=== PATIENT | male | born 1985 | race Caucasian/White ===

== ENCOUNTER 2019-09-17 13:03 | Inpatient (IN) ==
[2019-09-17 13:47] LABS: BASO# 0.17 X1000 (0.0-0.2); BASO% 2.3 % (0.0-0.8); EOS# 0.32 X1000 (0.0-0.7); EOS% 4.3 % (0.0-10.0); HEMATOCRIT 44.3 % (42.0-52.0); HEMOGLOBIN 14.4 g/dL (14.0-18.0); LYMPH# 2.28 X1000 (1.2-3.4); LYMPH% 30.8 % (20.5-51.1); MCH 26.8 PG (27-31); MCHC 32.5 g/dL (33-37); MCV 82.3 FL (81-99); MONO# 0.65 X1000 (0.11-0.59); MONO% 8.8 % (1.7-9.3); MPV 10.2 FL (7.4-10.4); NEUT# 3.98 X1000 (1.4-6.5); NEUT% 53.8 % (42.2-75.2); PLT 291 X1000 (130-400); RBC 5.38 XMIL (4.7-6.1)
--- NOTE | 2019-09-17 13:49 | Diag Imaging Result Doc PS360 ---
EXAM: CHEST-PORTABLE HISTORY: overdose TECHNIQUE: Single view COMPARISON: 09/09/2019 FINDINGS: The lungs are well expanded. The heart is not enlarged. The vessels are not distended. There are no infiltrates. No effusion identified. IMPRESSION: Negative exam. Electronically signed by Robert Berumen 09/17/2019 1:46 PM
[2019-09-17 13:52] LABS: URINE SOURCE CLEAN CATCH
[2019-09-17 13:54] LABS: BILIRUBIN URINE NEGATIVE (NEGATIVE); BLOOD URINE NEGATIVE (NEGATIVE); COLOR YELLOW; GLUCOSE URINE NEGATIVE (NEGATIVE); KETONE URINE NEGATIVE (NEGATIVE); LEUKOCYTES URINE NEGATIVE (NEGATIVE); NITRITE URINE NEGATIVE (NEGATIVE); PROTEIN URINE TRACE mg/dL (NEGATIVE); SP GRAVITY URINE 1.024; TURBIDITY URINE CLEAR (CLEAR); UROBILINOGEN URINE 2 mg/dL (NORMAL)
[2019-09-17 13:56] LABS: UR EPITHELIAL CELLS <10 /HPF (<10); URINE BACTERIA NEGATIVE /HPF; URINE RBC <10 /HPF (<10); URINE WBC <10 /HPF (<10)
[2019-09-17 14:03] LABS: URINE CRYSTALS NONE SEEN
[2019-09-17 14:07] LABS: UR AMPHETAMINES QUAL PRESUMPTIVE POSITIVE (NONE DETECT); UR BARBITUATES QUAL NONE DETECTED (NONE DETECT); UR BENZODIAZEPIN QUAL NONE DETECTED (NONE DETECT); UR CANNABINOIDS QUAL NONE DETECTED (NONE DETECT); UR COCAINE QUAL NONE DETECTED (NONE DETECT); UR METHADONE QUAL NONE DETECTED (NONE DETECT); UR OPIATES QUAL NONE DETECTED (NONE DETECT); UR OXYCODONE QUAL NONE DETECTED (NONE DETECT); UR PCP QUAL NONE DETECTED (NONE DETECT)
--- NOTE | 2019-09-17 14:09 | EKG Report ---
Test Performed on : 09/17/2019 1:22:39 PM Test Reason : overdose Blood Pressure : / mmHG Vent. Rate : 054 BPM Atrial Rate : 054 BPM P-R Int : 162 ms QRS Dur : 098 ms QT Int : 388 ms P-R-T Axes : 024 062 042 degrees QTc Int : 367 ms Sinus bradycardia. Otherwise normal ECG When compared with ECG of 08-SEP-2019 17:57, (Unconfirmed) No significant change was found Unconfirmed Result
[2019-09-17 14:31] LABS: ACETAMINOPHEN < 1.2 ug/mL (10-30); AGAP 12; ALB/GLOB RATIO 1.9; ALBUMIN 4.3 g/dL (3.5-5.0); ALKALINE PHOSPHATASE 90 U/L (32-122); BUN 8 mg/dL (8-22); CHLORIDE 97 mmol/L (98-107); COSMO 269; ESTIMATED GFR > 60; GLUCOSE 100 mg/dL (70-104); GOT 15 U/L (10-34); GPT 16 U/L (10-44); POTASSIUM 4.3 mmol/L (3.5-5.1); SALICYLATES < 3.00 mg/dL (3-10); SODIUM 135 mmol/L (136-145); TCO2 26 mmol/L (25-35); TOTAL BILIRUBIN 0.98 mg/dL (0.20-1.00); TOTAL PROTEIN 6.6 g/dL (6.3-8.3)
[2019-09-17 14:49] LABS: FREE T4 1.76 ng/dL (0.93-1.70); TSH 0.73 uIUmL (0.27-4.20)
--- NOTE | 2019-09-17 15:29 | PROVIDER DOCUMENTATION ---
This chart was entered by Doris Hackett Scribe, acting as scribe for Ubaldo Montes MD. 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 Pt told EMS he took 29 - 30mg Prozac. EMS said pt was alert and talking when they arrived. Pt is alert and nontoxic in appearance on arrival in ED. This episode of drinking or use began:: 1-3 hours ago Severity: reports: mild Situational problems related to:: reports: N/A Psychiatric Complaints: reports: suicidal ideation Any injuries associated with this episode of intoxication?: No Similar Symptoms Previously?: Yes (Pt seen in ED 09/08/2019 and transferred to [facility] on 09/10/2019) - Substance Abuse Substance Use: reports: none presently/history of abuse (Pt was seen in ED 09/08/2019 for overdose) Review of Systems - Adult - REVIEW OF SYSTEMS - ADULT Constitutional: denies: chills, fever Eyes: reports: no symptoms reported Ears, Nose, Mouth & Throat: reports: no symptoms reported Cardiovascular: denies: chest pain, syncope Respiratory: denies: cough, shortness of breath Gastrointestinal: reports: no symptoms reported Genitourinary: reports: no symptoms reported Musculoskeletal: reports: no symptoms reported Integumentary: reports: no symptoms reported Neurological: reports: no symptoms reported Psychiatric: reports: see HPI, suicidal thoughts (overdose of 29 pills of 30 mg Prozac this am) Endocrine: reports: no symptoms reported Hematologic/Lymphatic: reports: no symptoms reported Allergic/Immunologic: reports: no symptoms reported All Other Systems: Reviewed and Negative Past History - Adult - PAST MEDICAL HISTORY-ADULT Review of Records: reports: Old Records Reviewed, Nursing Assessment Review, Medications Reviewed, Social history reviewed & non-contributory. Major Childhood Illnesses: reports: denies history Cardiovascular: reports: denies history Respiratory: reports: denies history Gastrointestinal: reports: denies history Genitourinary: reports: denies history Musculoskeletal: reports: denies history Neurological: reports: denies history Psychiatric: reports: bipolar Endocrine/Immune: reports: denies history Other Conditions: reports: denies history - PRIOR SURGERIES/PROCEDURES Surgical/Procedure History: reports: none - IMMUNIZATION STATUS Childhood Immunizations: See Nurse Assessment Flu Vaccine: See Nurse Assessment - FAMILY HISTORY Family History: reviewed, not pertinent - SOCIAL HISTORY Smoking: chew (1 can per day) Living Situation: family (grandmother) Physical Exam-General - PHYSICAL EXAM-ADULT Initial Vital Signs Reviewed: Yes (HR 53) - CONSTITUTIONAL General Appearance: appears well, alert, no apparent distress, lethargic (answers appropriately) - EYES Eyes: PERRL/EOMI, pink conjunctivae - HEAD, EARS, NOSE, MOUTH & THROAT HENMT: normocephalic/atraumatic, moist mucous membranes - NECK Neck: non-tender, full range of motion, supple - RESPIRATORY Respiratory: chest non-tender, lungs clear, normal breath sounds, no pleuratic chest pain, no respiratory distress, no accessory muscle use - CARDIOVASCULAR Cardiovascular: normal peripheral pulses, no edema, no gallop, no JVD, no murmur , bradycardia - GASTROINTESTINAL (ABDOMEN) Abdominal Exam: non tender, soft - LYMPHATIC Lymphatic: no adenopathy - MUSCULOSKELETAL Back Exam: normal inspection, no CVA tenderness, no vertebral tenderness Extremity: normal range of motion, non-tender, normal gait, normal inspection, no pedal edema, no calf tenderness, normal capillary refill - SKIN Integumentary: normal color, normal turgor, warm/dry - NEUROLOGIC Neurologic: grossly normal - PSYCHIATRIC Psych/Mental Status: normal mood/affect, normal thought content, normal thought process, oriented x 3 Progress - PLAN OF CARE/RESULTS Progress/Plan/Lab Results: Vital Signs - 8 hr 09/17/19 13:21 Temperature 98.6 F Pulse Rate 53 L Respiratory Rate 18 Blood Pressure 112/77 O2 Sat by Pulse Oximetry 100 Laboratory Results - last 24 hr 09/17/19 09/17/19 09/17/19 13:33 13:35 13:35 WBC 7.40 RBC 5.38 Hgb 14.4 Hct 44.3 MCV 82.3 MCH 26.8 L MCHC 32.5 L RDW Std Deviation 14.0 Plt Count 291 MPV 10.2 Immature Gran % (Auto) 0.0 Neut % (Auto) 53.8 Lymph % (Auto) 30.8 [place] % (Auto) 8.8 Eos % (Auto) 4.3 Baso % (Auto) 2.3 H Immature Gran # (Auto) 0.00 Neut # (Auto) 3.98 Lymph # (Auto) 2.28 [place] # (Auto) 0.65 H Eos # (Auto) 0.32 Baso # (Auto) 0.17 Sodium 135 L Potassium 4.3 Chloride 97 L Carbon Dioxide 26 Anion Gap 12 BUN 8 Creatinine 1.0 Estimated GFR/1.73 m2 > 60 BUN/Creatinine Ratio 8 Glucose 100 Calculated Osmolality 269 Calcium 9.0 Magnesium Total Bilirubin 0.98 AST 15 ALT 16 Alkaline Phosphatase 90 Total Protein 6.6 Albumin 4.3 Globulin 2.3 Albumin/Globulin Ratio 1.9 Vitamin B12 286 TSH 0.73 Free T4 1.76 H Urine Source Urine Color Urine Turbidity Urine pH Ur Specific [place] Urine Protein Ur Glucose (Stick) Ur Ketones (Stick) Urine Blood Urine Nitrite Urine Bilirubin Urobilinogen Dipstick Urine Leukocytes Urine WBC (Auto) Urine RBC (Auto) U Epithel Cells (Auto) Urine Bacteria (Auto) Urine Crystals Small Round Cells Urine Casts Urine Yeast-like Cells Salicylates < 3.00 L Urine Opiates Screen Ur Oxycodone Screen Ur Methadone, Qual Acetaminophen < 1.2 L Ur Barbiturates Screen Ur Phencyclidine Scrn Ur Amphetamines Screen U Benzodiazepines Scrn Urine Cocaine Screen U Cannabinoids Screen Plasma/Serum Ethyl Alc 09/17/19 09/17/19 09/17/19 13:35 13:35 13:47 WBC RBC Hgb Hct MCV MCH MCHC RDW Std Deviation Plt Count MPV Immature Gran % (Auto) Neut % (Auto) Lymph % (Auto) [place] % (Auto) Eos % (Auto) Baso % (Auto) Immature Gran # (Auto) Neut # (Auto) Lymph # (Auto) [place] # (Auto) Eos # (Auto) Baso # (Auto) Sodium Potassium Chloride Carbon Dioxide Anion Gap BUN Creatinine Estimated GFR/1.73 m2 BUN/Creatinine Ratio Glucose Calculated Osmolality Calcium Magnesium 2.0 Total Bilirubin AST ALT Alkaline Phosphatase Total Protein Albumin Globulin Albumin/Globulin Ratio Vitamin B12 TSH Free T4 Urine Source Urine Color Urine Turbidity Urine pH Ur Specific [place] Urine Protein Ur Glucose (Stick) Ur Ketones (Stick) Urine Blood Urine Nitrite Urine Bilirubin Urobilinogen Dipstick Urine Leukocytes Urine WBC (Auto) Urine RBC (Auto) U Epithel Cells (Auto) Urine Bacteria (Auto) Urine Crystals Small Round Cells Urine Casts Urine Yeast-like Cells Salicylates Urine Opiates Screen NONE DETECTED Ur Oxycodone Screen NONE DETECTED Ur Methadone, Qual NONE DETECTED Acetaminophen Ur Barbiturates Screen NONE DETECTED Ur Phencyclidine Scrn NONE DETECTED Ur Amphetamines Screen PRESUMPTIVE POSITIVE A U Benzodiazepines Scrn NONE DETECTED Urine Cocaine Screen NONE DETECTED U Cannabinoids Screen NONE DETECTED Plasma/Serum Ethyl Alc 09/17/19 13:47 WBC RBC Hgb Hct MCV MCH MCHC RDW Std Deviation Plt Count MPV Immature Gran % (Auto) Neut % (Auto) Lymph % (Auto) [place] % (Auto) Eos % (Auto) Baso % (Auto) Immature Gran # (Auto) Neut # (Auto) Lymph # (Auto) [place] # (Auto) Eos # (Auto) Baso # (Auto) Sodium Potassium Chloride Carbon Dioxide Anion Gap BUN Creatinine Estimated GFR/1.73 m2 BUN/Creatinine Ratio Glucose Calculated Osmolality Calcium Magnesium Total Bilirubin AST ALT Alkaline Phosphatase Total Protein Albumin Globulin Albumin/Globulin Ratio Vitamin B12 TSH Free T4 Urine Source CLEAN CATCH Urine Color YELLOW Urine Turbidity CLEAR Urine pH 6.0 Ur Specific [place] 1.024 Urine Protein TRACE A Ur Glucose (Stick) NEGATIVE Ur Ketones (Stick) NEGATIVE Urine Blood NEGATIVE Urine Nitrite NEGATIVE Urine Bilirubin NEGATIVE Urobilinogen Dipstick 2 A Urine Leukocytes NEGATIVE Urine WBC (Auto) <10 Urine RBC (Auto) <10 U Epithel Cells (Auto) <10 Urine Bacteria (Auto) NEGATIVE Urine Crystals NONE SEEN Small Round Cells Not Reportable Urine Casts Not Reportable Urine Yeast-like Cells Not Reportable Salicylates Urine Opiates Screen Ur Oxycodone Screen Ur Methadone, Qual Acetaminophen Ur Barbiturates Screen Ur Phencyclidine Scrn Ur Amphetamines Screen U Benzodiazepines Scrn Urine Cocaine Screen U Cannabinoids Screen Plasma/Serum Ethyl Alc Orders Category Date Time Status Cardiac Monitoring DIRECTED Care 09/17/19 13:07 Active Nursing- Obtain EKG once Care 09/17/19 13:06 Active Saline Loc NOW Care 09/17/19 13:06 Active CHEST-PORTABLE [RAD] Stat Exams 09/17/19 13:06 Completed ACETAMINOPHEN [TDM] Stat Lab 09/17/19 13:35 Completed ALCOHOL BLOOD Stat Lab 09/17/19 13:35 Completed CBC WITH ELECTRONIC DIFF [HEME] Stat Lab 09/17/19 13:33 Completed COMPREHENSIVE METABOLIC PANEL [CHEM] Stat Lab 09/17/19 13:35 Completed FREE T4 Stat Lab 09/17/19 13:35 Completed MAGNESIUM [CHEM] Stat Lab 09/17/19 13:35 Completed SALICYLATES [TDM] Stat Lab 09/17/19 13:35 Completed TSH Stat Lab 09/17/19 13:35 Completed URINALYSIS W/POSS RFLX CULT [URINALYSIS] Stat Lab 09/17/19 13:47 Completed URINE DRUG SCREEN Stat Lab 09/17/19 13:47 Completed URINE MANUAL MICROSCOPIC [URINALYSIS] Stat Lab 09/17/19 13:47 Completed VITAMIN B12 Stat Lab 09/17/19 13:35 Completed EKG [EKG] Stat Ther 09/17/19 13:06 Draft EKG [EKG] Stat Ther 09/17/19 17:30 Ordered Result Diagrams: 09/17/19 13:33 09/17/19 13:35 - REASSESSMENT Reassessment #1 Time Reassessed: 15:27 Status: unchanged (Patient lethargic but rousable, HR drifts down to 40s when resting, but BP is normotensive. Will not likely be medically clear for at least 24 hours, so will ask hospitalist to admit) - EKG 1 Time of EKG reading by physician:: 13:30 EKG Read and Signed by:: Ubaldo Montes EKG Interpretation (*Must complete 3 of following elements*): Normal Rate: 54 Rhythm: Sinus bradycardia QRS: normal GA Interval: normal Comments: NonSTEMI, early repol - XRAY 1 XRAY Study: Chest Impression: See EMR Report ([facility] - [address], [address], [place] [address] [facility] - [address] [facility] [place] [address] Department of Imaging Patient: KARUNA GRIFFIN Date: 09/17/19#: [id number] : 1985ADM Status: PRE ERAcct#: [id number] Age/Sex: 34/MRoom/Bed: Loc: ED Ordering Physician: Ubaldo Montes MD Family Physician: Reason for Procedure: overdose Signed EXAM: CHEST- PORTABLE HISTORY: overdose TECHNIQUE: Single view COMPARISON: 09/09/2019 FINDINGS: The lungs are well expanded. The heart is not enlarged. The vessels are not distended. There are no infiltrates. No effusion identified. IMPRESSION: Negative exam. Electronically signed by Robert Berumen 09/17/2019 1:46 PM 09/17/19 1346 Interpreting Physician: Robert Berumen MD Dictated Date/Time: 09/17/19 1346 cc: Ubaldo Montes MD;) - CONSULTS/PCP/HOSPITALIST Notification #1 *Consult/PCP/Hospitalist*: MICKY Alfredo, hospitlaist Time Discussed: 15:28 Consult Disposition: Will see in ED, Admit Departure - Departure Date of Disposition Decision: 09/17/19 Time of Disposition Decision: 15:28 DIAGNOSIS: Suicide attempt by drug overdose, Sinus bradycardia, Somnolence Disposition: ADMITTED INPATIENT 09 Certified Medical Emergency: Emergent Condition: Stable - Critical Care Note This patient required my direct & personal management of CC.: No Attestation - Physician/ CHEMA Attestation Patient care was provided by Advanced Practice Provider:: No The physician spent face to face time with patient:: Yes Advanced Practice Provider documentation review:: Supervising physician onsite and consulted in the evaluation and care of this patient. The physician did have a face to face encounter with the patient. This chart was documented by the indicated scribe, (Doris Hackett Scribe) and accurately reflects the services I performed and decisions made by me, Ubaldo Montes MD, as attested by the provider's signature.
[2019-09-17] MEDS ORDERED: NS 1,000 ML IV SCH (16:00)
--- NOTE | 2019-09-17 17:12 | HISTORY AND PHYSICAL ---
PRIMARY CARE PROVIDER: No one. CHIEF COMPLAINT: Overdosed on Prozac. HISTORY OF PRESENT ILLNESS: Mr. Alistair Paredes is a 34-year-old male who reports a medical history of bipolar disorder, was most recently in the hospital in I believe it was [facility] was discharged recently on Prozac. He states he took the whole bottle of Prozac 30 pills total just before lunch today with reported attempt of suicide. He does wish kill himself and so Poison Control was contacted and the recommendation is to continue to monitor and get EKGs to make sure the QTc does not prolong out. We will admit him to the ICU to evaluate and treat. Currently he is having some bradycardic rhythms and so he will be on telemetry in the ICU. PAST MEDICAL HISTORY: Bipolar disorder. SURGICAL HISTORY: None. SOCIAL HISTORY: He dips a can of dip on a daily basis. Denies alcohol or illicit drug use, lives with grandmother. He has been disabled due to mental disorders. FAMILY HISTORY: Mother had a stroke and at 44. Father has diabetes. ALLERGIES: Ritalin causes a rash. home medications Unknown. REVIEW OF SYSTEMS: Fourteen point review of systems are complete and all were negative except for those mentioned above HPI. PHYSICAL EXAMINATION: VITAL SIGNS: Temperature 98.6 degrees, heart rate 53, respiratory rate 18, blood pressure 112/77, O2 saturation 100% on room air. GENERAL: Mr. Alistair Paredes is a 34-year-old male he is in no acute distress. He is drowsy but he is able to wake up and answer questions appropriately. HEENT: Atraumatic, normocephalic. Pupils equal, round, reactive to light. Extraocular movements intact. Mucous membranes are moist. NECK: Trachea midline. CARDIOVASCULAR: S1, S2. Bradycardic rate and rhythm. No rubs, gallops, murmurs. No lower extremity edema. +2 dorsalis and radial pulses. Negative JVD or carotid bruits. PULMONARY: Clear to auscultate bilateral breath sounds. No accessory muscle use or work of breathing noted. GI: Soft, nontender, nondistended. Positive bowel sounds x4. EXTREMITIES: Moves all extremities equally. Full range of motion. NEURO: A and O x3. Follows commands. Sensory is intact. He is a little drowsy. SKIN: Warm, dry, intact. LABORATORY DATA: White blood cells 7000, hemoglobin 14, hematocrit 44, platelet count 291,000. Sodium 135, potassium 4.3, BUN 8, creatinine is 1.0, glucose 100, calcium 9.0, magnesium 2.0, bilirubin 0.98, AST 15, ALT 16, vitamin B12 286, TSH 0.73, free T4 is 1.76. Urinalysis trace protein, 2 urobilinogen otherwise negative. Salicylates less than 3, acetaminophen less than 1.2. He is positive amphetamines, negative alcohol. IMAGING: Chest x-ray negative exam. EKG rate 54, QTc is 367 and he is sinus bradycardia. ASSESSMENT AND PLAN: 1. Prozac overdose with intentional attempt for suicide. He will have to be watched in the ICU closely and will monitor his QTc for prolongation. We will hold any medications that can prolong the QTc and he will need a [facility] consult once medically cleared. 2. History of bipolar disorder, was recently being treated at [facility] in [place]. 3. Amphetamine positive. He denies illicit drug use. It could be a prescribed medication he is receiving but he is unclear. 4. Deep venous prophylaxis SCDs. 5. Tobacco abuse is smokeless tobacco. He dips 1 can of dip per day. May have to add a nicotine patch if needed. Dictated by MICKY Ames for Marek Nolen MD cc: MICKY Ames MD
[2019-09-17] MEDS ORDERED: MELATONIN PO ONE (20:36)
[2019-09-17] MEDS ORDERED: NS 1,000 ML IV ONE (21:13)
[2019-09-17] MEDS ORDERED: ZOFRAN IV PRN (21:13)
--- NOTE | 2019-09-17 21:33 | PROGRESS NOTE ---
DATE: 09/17/2019 SUBJECTIVE: The patient has a history of depression, possibly bipolar. In any case he came in with an intentional overdose of Prozac. He took 30 tablets of Prozac at 40 mg. ASSESSMENT/PLAN: The patient will be admitted, placed on observation, and monitored. He reportedly has amphetamines in his system too, which is certainly possible. In any case, we will continue fluids and monitoring psychiatric evaluation once stable. cc: Marek Nolen MD
[2019-09-18 04:31] LABS: BASO# 0.04 X1000 (0.0-0.2); BASO% 0.7 % (0.0-0.8); EOS# 0.24 X1000 (0.0-0.7); EOS% 3.9 % (0.0-10.0); HEMATOCRIT 40.8 % (42.0-52.0); HEMOGLOBIN 13.2 g/dL (14.0-18.0); LYMPH# 2.63 X1000 (1.2-3.4); MCHC 32.4 g/dL (33-37); MCV 83.6 FL (81-99); MONO# 0.53 X1000 (0.11-0.59); MONO% 8.7 % (1.7-9.3); MPV 10.3 FL (7.4-10.4); NEUT# 2.67 X1000 (1.4-6.5); NEUT% 43.7 % (42.2-75.2); PLT 246 X1000 (130-400); RBC 4.88 XMIL (4.7-6.1); WBC 6.11 X1000 (4.8-10.8)
[2019-09-18 05:08] LABS: AGAP 10; ALB/GLOB RATIO 1.3; ALBUMIN 3.5 g/dL (3.5-5.0); ALKALINE PHOSPHATASE 79 U/L (32-122); BUN 8 mg/dL (8-22); CALCIUM 8.3 mg/dL (8.8-10.2); CHLORIDE 99 mmol/L (98-107); COSMO 271; CREATININE 0.9 mg/dL (0.7-1.2); ESTIMATED GFR > 60; GLUCOSE 115 mg/dL (70-104); GOT 12 U/L (10-34); GPT 13 U/L (10-44); MAGNESIUM 1.9 mg/dL (1.5-2.7); SODIUM 136 mmol/L (136-145); TCO2 27 mmol/L (25-35); TOTAL BILIRUBIN 1.06 mg/dL (0.20-1.00); TOTAL PROTEIN 6.1 g/dL (6.3-8.3)
--- NOTE | 2019-09-18 07:01 | EKG Report ---
Test Performed on : 09/18/2019 06:36:36 AM Test Reason : qtc evaluation after prozac overdose Blood Pressure : / mmHG Vent. Rate : 042 BPM Atrial Rate : 042 BPM P-R Int : 156 ms QRS Dur : 090 ms QT Int : 424 ms P-R-T Axes : 069 051 037 degrees QTc Int : 354 ms Critical Test Result: Low HR Marked sinus bradycardia. Abnormal ECG When compared with ECG of 17-SEP-2019 13:22, (Unconfirmed) No significant change was found Confirmed by Lisette HURD, Samuel Segal ([id number]) on 09/18/2019 9:58:10 AM
[2019-09-18] MEDS ORDERED: DOPAMINE 400 MG/D5W 400 MG/500 ML IV.SOLN IV SCH (07:45)
--- NOTE | 2019-09-18 08:09 | EKG Report ---
Test Performed on : 09/18/2019 04:01:42 AM Test Reason : ICU. NO EKG ORDER FOR MUSE Blood Pressure : / mmHG Vent. Rate : 041 BPM Atrial Rate : 041 BPM P-R Int : 154 ms QRS Dur : 098 ms QT Int : 442 ms P-R-T Axes : 008 071 043 degrees QTc Int : 364 ms Marked sinus bradycardia. Abnormal ECG No previous ECGs available Confirmed by Lisette HURD, Samuel Segal ([id number]) on 09/18/2019 9:58:00 AM
--- NOTE | 2019-09-18 10:52 | CARDIOLOGY CONSULTATION ---
DATE: 09/18/2019 CHIEF COMPLAINT ON PRESENTATION: Suicide attempt with Prozac overdose. HISTORY OF PRESENT ILLNESS: Mr. Paredes is a 34-year-old, white male with a history of depression, recent admissions to inpatient psych. Reportedly took approximately 30 pills of Prozac around noon yesterday. The patient does report some occasional dizziness since admission. He has had some identified heart rates showing sinus bradycardia in the 30s and 40s. This seems to occur when he is lying in bed and calm. When the patient sits up and is conversant, he has had heart rates in the 60s to 70s during my examination. He denies any overt syncope. He has some mild abdominal pain, but otherwise no complaints. PAST MEDICAL HISTORY: Significant for bipolar. SOCIAL HISTORY: Smokeless tobacco use. No alcohol or illicit drugs. FAMILY HISTORY: Mother had a stroke apparently at 44 and . Father had diabetes. REVIEW OF SYSTEMS: A 10-system review of systems is negative, except for those mentioned in the HPI. PHYSICAL EXAMINATION: Vital Signs: Afebrile. Heart rate most recently was in the 60s to 70s. He has had some documented heart rates in the high 30s to low 40s. Blood pressure 118/75. General: No acute distress. HEENT: Oropharynx is moist. Normal dentition. Eye examination shows pink conjunctivae, white sclerae. Neck: No obvious thyromegaly or thyroid tenderness. Cardiovascular: He is in a regular rate and rhythm. He has no murmurs. He has no S3. He has no lower extremity edema. He has no carotid bruits. Chest: Sounds relatively clear to auscultation bilaterally with no increased work of breathing. Abdomen: Soft, nontender, nondistended. He has no obvious organomegaly. Skin: Warm and dry throughout without any rashes. Neurological: He is moving all extremities well. He has no lateralizing deficits. PERTINENT DATA: His chest x-ray is unremarkable. EKG on 09/17/2019 at 1322 shows sinus rhythm, 54 beats per minute, normal QTc, normal ND interval. Subsequent EKG tracing reviewed by me on 09/18/2019 at 4:01 shows sinus rhythm, rate of 41 beats per minute, normal QTc at 364, ND interval 154. Subsequent EKG on 09/18/2019 at 6:36 this morning, again reviewed by me, shows sinus rhythm at 42 beats per minute, QTc of 354, normal ND interval. LABORATORY DATA: White count is 6.1, hematocrit 40, platelet count of 246,000. Sodium 136, potassium 4, BUN 8, creatinine 0.9. TSH 0.73, with a free T4 of 1.76. He had a positive screen for amphetamines. Serum alcohol negative. ASSESSMENT: Mr. Paredes is a 34-year-old gentleman with suicide attempt via ingestion of Prozac. PLAN: At this point, he appears to be in sinus rhythm with appropriate rates. He has not required any sort of support for his heart rate. His TSH is normal. At this point, we will order an echo. If this is unremarkable, I do not have any further recommendations. cc: Anival Chavez MD MTDD
--- NOTE | 2019-09-18 14:31 | PROGRESS NOTE ---
DATE: 09/18/2019 SUBJECTIVE: The patient has no major complaints. OBJECTIVE: Vital Signs: Blood pressure is 107/71, heart rate is in the 40s to 50s but is a sinus bradycardia. Temperature 97.8 degrees. Cardiovascular: Regular rate and rhythm. Pulmonary: Bilateral breath sounds clear to auscultation. GI: Soft, nontender, nondistended. Bowel sounds are positive. LABORATORY DATA: White count 6, hemoglobin and hematocrit 13 and 40, platelets 246,000. PROBLEM LIST: 1. Fluoxetine overdose. We will continue to monitor. So far no clear pathology, however, he has developed fairly significant bradycardia, which is probably due to drug effect. 2. Sinus bradycardia. I do not think he ever ended up starting dopamine. We did get a cardiology consult. Echo pending. Will follow. DISPOSITION: Will need psychiatric evaluation once he is stabilized, however, probably going to have to monitor him today because of concurrent issues. cc: Marek Nolen MD
--- NOTE | 2019-09-18 16:00 | ECHO REPORT ---
ORDER DATE: 09/18/2019 INTERPRETING PHYSICIAN: Gunner Mercado MD. CLINICAL INDICATIONS: Bradycardia. M-MODE MEASUREMENTS: Left ventricle end diastole: 4.7 cm. Left ventricle end systole: 2.9 cm. Posterior wall: 0.8 cm. Interventricular septum: 0.9 cm. Left atrium: 3.6 cm. Aortic diameter: 3.2 cm. SUMMARY OF 2-DIMENSIONAL IMAGIN. Left ventricular function is normal, ejection fraction of 69%. There is no wall motion abnormality noted. 2. The right ventricle appears to be normal. 3. The atria appear to be normal. 4. The mitral valve looks normal. Color flow mapping unremarkable. 5. Pulse wave Doppler of mitral inflow is normal. 6. Tissue Doppler of septal and lateral mitral annulus averages 9 cm. 7. The aortic valve looks normal. Color flow mapping unremarkable. 8. The inferior vena cava is not dilated. 9. The tricuspid valve looks normal. Color flow mapping unremarkable. 10.Pulmonary pressure is normal. 11.Pulmonic valve is normal. Color flow mapping unremarkable. 12.There is no pericardial effusion, no mass, and no thrombus. SUMMARY: This echocardiographic study appears to be within normal limits. cc: MD Anival Petty MD
[2019-09-18] MEDS: TYLENOL PO PRN ×2 (16:09→21:11)
[2019-09-19 04:37] LABS: EOS# 0.35 X1000 (0.0-0.7); EOS% 5.4 % (0.0-10.0); HEMATOCRIT 41.8 % (42.0-52.0); HEMOGLOBIN 13.7 g/dL (14.0-18.0); LYMPH# 2.97 X1000 (1.2-3.4); MCH 27.2 PG (27-31); MCHC 32.8 g/dL (33-37); MCV 83.1 FL (81-99); MONO# 0.58 X1000 (0.11-0.59); MPV 10.4 FL (7.4-10.4); PLT 236 X1000 (130-400); RBC 5.03 XMIL (4.7-6.1); RDW 13.8 % (11.5-14.5); WBC 6.45 X1000 (4.8-10.8)
[2019-09-19 04:52] LABS: AGAP 9; ALB/GLOB RATIO 1.6; ALBUMIN 3.7 g/dL (3.5-5.0); ALKALINE PHOSPHATASE 77 U/L (32-122); BUN 9 mg/dL (8-22); CHLORIDE 101 mmol/L (98-107); COSMO 272; CREATININE 0.8 mg/dL (0.7-1.2); ESTIMATED GFR > 60; GLUCOSE 97 mg/dL (70-104); GOT 10 U/L (10-34); GPT 12 U/L (10-44); MAGNESIUM 1.7 mg/dL (1.5-2.7); POTASSIUM 4.1 mmol/L (3.5-5.1); SODIUM 137 mmol/L (136-145); TCO2 27 mmol/L (25-35); TOTAL BILIRUBIN 0.78 mg/dL (0.20-1.00)
[2019-09-19 04:59] LABS: LYMPHS 50 % (21-51); MONO 4 % (1-9); SEGS 46 % (42-75)
--- NOTE | 2019-09-19 11:22 | CARDIOLOGY PROGRESS NOTE ---
DATE: 09/19/2019 SUBJECTIVE: Mr. Paredes had no issues last night. No syncope. PHYSICAL EXAMINATION: The patient is afebrile. His heart rates during my examination were in the 70s to 80s. Over the last 24 hours, he has had heart rates anywhere from the high 40s to the high 50s. His blood pressure is 96/63. General: He is in no acute distress. Cardiovascular: He sounds to be in a regular rate and rhythm. He has no obvious murmurs. He has no S3. He has no lower extremity edema. Chest: Examination is clear bilaterally. He has no increased work of breathing. Abdomen: Soft, nontender. PERTINENT DATA: His echocardiogram was reviewed. It demonstrated a preserved ejection fraction. No significant valvular abnormalities. His lab data demonstrated a normal TSH. ASSESSMENT: Mr. Paredes is a 34-year-old gentleman who came in after an selective serotonin reuptake inhibitor overdose attempt. PLAN: At this point, his bradycardia appears asymptomatic. It increases significantly with the patient sitting up and interacting with the examiner. We will order a 1 week JOSEE for further evaluation of his relative and what seems like asymptomatic bradycardia. From my standpoint, the patient can be discharged from the hospital from a cardiovascular standpoint. We will sign off at this time. cc: Anival Chavez MD
--- NOTE | 2019-09-19 12:41 | PROGRESS NOTE ---
DATE: 09/19/2019 SUBJECTIVE: Mr. Paredes is a 34-year-old. He overdosed on Prozac and came in on 09/17/2019. He reports medical history of bipolar disorder most recently in the hospital I believe at [facility] in [facility]. He was discharged recently on Prozac. He states that he took a whole bottle of Prozac 30 pills total just before lunch on the day of admission 09/17/2019, and he reported attempted suicide. He does wish to kill himself and so Poison Control was contacted, we monitored and put him in the hospital. He is stable and his cardiac status seems to be good. We held any medications that could prolong his QTc interval, and he was amphetamine positive for list of drug on the urine drug screen. We moved him to the floor. OBJECTIVE: Temperature 98 degrees, pulse 50, respirations 16, and blood pressure 96/73. HEENT: Pupils are equal and round. Lungs: Clear in all lung higgins. Cardiovascular: Regular rhythm and rate without murmur or S3. Abdomen: Soft. Skin: Warm and dry. Urine output is 3800 mL. ASSESSMENT AND PLAN: 1. He had some bradycardia which appears asymptomatic, and heart rate is increased. We are going to get a vent device for 1 week. From a cardiac standpoint, he can be discharged. He had fluoxetine overdose. 2. We need psychiatric evaluation because of his suicide ideations so we will see if we can get that ordered. 3. Bipolar. Aware. He was not on any medication other than Prozac. cc: Samuel Knox MD
[2019-09-19] MEDS: TYLENOL PO PRN (22:05)
[2019-09-20 07:22] LABS: BASO# 0.04 X1000 (0.0-0.2); BASO% 0.6 % (0.0-0.8); EOS# 0.36 X1000 (0.0-0.7); EOS% 5.3 % (0.0-10.0); HEMOGLOBIN 14.5 g/dL (14.0-18.0); IMM GRAN# 0.03 X1000 (0.0-0.04); IMM GRAN% 0.4 % (0.0-0.5); LYMPH# 2.32 X1000 (1.2-3.4); LYMPH% 34.3 % (20.5-51.1); MCH 27.4 PG (27-31); MONO# 0.66 X1000 (0.11-0.59); MONO% 9.8 % (1.7-9.3); MPV 10.5 FL (7.4-10.4); NEUT# 3.35 X1000 (1.4-6.5); NEUT% 49.6 % (42.2-75.2); PLT 265 X1000 (130-400); RDW 13.8 % (11.5-14.5); WBC 6.76 X1000 (4.8-10.8)
[2019-09-20 07:35] LABS: AGAP 11; ALB/GLOB RATIO 1.4; ALBUMIN 3.8 g/dL (3.5-5.0); ALKALINE PHOSPHATASE 80 U/L (32-122); BUN 9 mg/dL (8-22); CALCIUM 9.1 mg/dL (8.8-10.2); CHLORIDE 100 mmol/L (98-107); COSMO 274; CREATININE 0.8 mg/dL (0.7-1.2); ESTIMATED GFR > 60; GLUCOSE 92 mg/dL (70-104); GOT 11 U/L (10-34); GPT 12 U/L (10-44); MAGNESIUM 1.9 mg/dL (1.5-2.7); POTASSIUM 4.3 mmol/L (3.5-5.1); SODIUM 138 mmol/L (136-145); TCO2 27 mmol/L (25-35); TOTAL BILIRUBIN 0.72 mg/dL (0.20-1.00); TOTAL PROTEIN 6.5 g/dL (6.3-8.3)
--- NOTE | 2019-09-20 12:52 | PROGRESS NOTE ---
DATE: 09/20/2019 SUBJECTIVE: He is doing very well, feels good, eating everything. He is strong still, depression, he still has thoughts of suicide, so [facility] is supposed to evaluate, after he is medically stable, to be transferred if they agree. OBJECTIVE: Vital Signs: Temperature 98.4 degrees, pulse 56, respirations 18, blood pressure 127/66. HEENT: Pupils are equal and round. Lungs: Clear in all lung higgins. Cardiovascular: Regular rhythem and rate without murmur or S3. Abdomen: Soft. Skin: Warm and dry. LABORATORY DATA: Review of his lab from yesterday and the day before all look good. ASSESSMENT AND PLAN: 1. He has had bradycardia. He had an overdose of Prozac and doing well from that standpoint. Cardiac, hemodynamically stable, good blood pressure. 2. He came in with a suicide attempt and suicide ideations. 3. History of bipolar, aware. He is off of any medication at this point. He was just on Prozac. Dr. Anival Chavez did mention getting a monitor, maybe a loop monitor for 1 week or 2. His heart rate has been above 50 and blood pressures look good, and his pulses are strong. cc: Samuel Knox MD
[2019-09-20 15:31] VITALS: BP 115/59
== END 2019-09-20 17:29 | DRG 918 ==
LOC: ED 13:03 → SUATTDRO 16:29 → ICU 16:29 → 3N 09-19 10:05
PROVIDERS: ATTEND Emergency Medicine